=== PATIENT | female | born 1950 | race Caucasian/White ===

== ENCOUNTER 2018-04-30 14:00 | Outpatient (RCR) ==
[2015-09-04 13:14] VITALS: BMI 29.5
--- NOTE | 2018-04-09 10:46 | RS.OPPTEV2 ---
Date of Note: 04/08/18 Visit #: 1 Number of visits approved by Insurance: n/a Date of Evaluation: 04/08/18 Payer Source: MEDICARE Date of Onset/Injury/Change in Status: 04/02/18 Surgery Performed?: No Treatment Diagnosis: Back pain, Lumbar disc degeneration History of Condition/Mechanism of Injury:: pt reports acute onset of low back pain radiating into LLE beginning on 04/02/18. States when she stood up from bed had an acute onset of pain with sharp pain radiating into LLE. Prior Level of Function.....Patient was independent with: ADL's, Self Care, Caregiving, Ambulation/Mobility, Community Integration/Access Functional Limitations: Sleep, Self Care, ADL's, Pushing, Pulling, Lifting, Sitting, Standing, Ambulation, Community Access/Integration Current Subjective/complaints:: pt reports pain is excrutiating and she has been unable to perform any of her normal daily activities since onset. Treatment Side (optional): Left *Precautions: advised pt to limit bending, lifting or twisting Medical History Medical History: Arthritis Medical History Comments:: complex regional pain syndrome( RSD) in right hand and L foot, Fibromyalgia Smoking Status: Former smoker Hx Home Medications: percocet, zanaflex (takes for the RSD) Patient's Goals: decrease pain Pain Assessment - Pain Description Pain Location: L lumbar area radiating into LLE Current Pain Intensity: 10 Worst Pain Intensity: 10 Other Comments regarding Pain:: pt increases with any movement Functional Outcome Measure Oswestry LBP: 38 - G Codes & Severity Modifier G Codes & Modifier: n/a Source of G Code score: n/a Observation - Observation Posture: Forward Head, Rounded Shoulders, Increased Thoracic Kyphosis Handedness: Right Gait - Gait Pattern Gait Comments: pt amb with significantly flexed posture, decreased step length and guarded posture due to pain. General Range of Motion: BUE WFL's. BLE WFL's. (difficulty to fully test due to pt pain level) Muscle Strength: BUE grossly 4/5. BLE grossly 4/5. (difficult to fully assess due to pain level) - ROM Lumbar Spine ROM Limitations: Soft Tissue Tightness, Muscle Weakness, Muscle Tone, Pain Comments: pt unable to reach with flex to mid thigh or lat bending. pt significantly limited due to pain. Lumbar ext decreases pain - Strength Trunk Extension: 4- Good- Trunk Flexion: 3- Fair- Trunk Lateral Flexion: 3- Fair- - Special Tests Seated Dural Stretch Test: Positive Left, Positive Right SI Joint Compression: Positive Comments: unable to fully test due to pt pain level. Palpation Palpation Findings: Tenderness, Trigger Point, Muscle Guarding Comments:: pt with withdraws to even light palpation of lumbar area with trigger points and muscle guarding especially over L SI joint Sensation - Sensation Right Upper Extremity: Intact/Normal Left Upper Extremity: Intact/Normal Right Lower Extremity: Intact/Normal Left Lower Extremity: Intact/Normal Balance - Sitting Balance Static Sitting Balance: Good Dynamic Sitting Balance: Good - Standing Balance Static Standing Balance: Fair Dynamic Standing Balance: Fair - Comments Balance Assessment Comments: pt balance limited due to pain causing pt posture to be shifted to R - Treatment Modality: Electrical Stim Attended Parameters/Method Applied: IFC x 20mins Treatment Area: to lumbar area Patient Position: Left Sidelying - Heat/Cryotherapy Treatment: Cryotherapy Comments:: lumbar spine Interventions - Exercise/Activities/Manual Therapy Exercises/Activities: pt unable to tolerate exercise except for prone lying x 1 to 1 1/2 mins. While prone lying pt had decreased radicular symptoms on LLE. Manual Therapy: n/a HOME EXERCISE PROGRAM: pt given HEP including lying prone, using ice packs as well as standing lumbar extenson. - Charges Timed Code Treatment Minutes: 49 Total Treatment Time: 65 Procedures billed for this date of service:: eval low, estim, cold pack EVALUATION COMPLEXITY LEVEL EVALUATION COMPLEXITY LEVEL: HISTORY: Low (fibromyalgia, OA), EXAM OF BODY SYSTEMS: Medium (pain, ROM, strength radicular symptoms), CLINICAL PRESENTATION : Low, CLINICAL DECISION MAKING: Low Assessment Assessment: pt presents with significant pain in lumar area worse on L and in area of L SI joint. pt with limited Lumbar ROM as well as radicular pain into LLE. Feel pt would benefit from skilled PT for therex for stretching, strengthening, and balance actvites Patient Education: Home Exercise Program, Education of Plan of Care Rehab Potential: Good Short Term Goals Goal #1: pt independent with initial HEP Goal to be met by: 04/29/18 Goal #2: Tenderness to palpation on L SI joint Goal to be met by: 04/29/18 Goal #3: pt report radicular pain no longer constant Goal to be met by: 04/29/18 Goal #4: pt rate pain < 8/10 Goal to be met by: 04/29/18 Wildlife Photographer Goals Goal #1: Oswestry LBP score <30 Goal to be met by: 05/20/18 Goal #2: pt able to return to normal daily activities with less pain Goal to be met by: 05/20/18 Goal #3: BLE flexibility WFL's Goal to be met by: 05/20/18 Plan - Treatment to be Provided Procedures: Therapeutic Exercises, Manual Therapy, Massage, Patient Education Modalities: Electrical Stimulation, Ultrasound/Phonophoresis, Cryotherapy, Hot Packs, Mechanical Traction - Treatment Plan Frequency: 2-3x a week Duration: 6 weeks Dates of Wildlife Photographer Goals: 05/20/18 Expiration date of current Insurance Approval:: 05/20/18 - Treatment Code (1) Low back pain with sciatica Code(s): M54.40 - LUMBAGO WITH SCIATICA, UNSPECIFIED SIDE Qualifiers: Chronicity: acute Back pain laterality: bilateral Sciatica laterality: sciatica of left side Qualified Code(s): M54.42 - Lumbago with sciatica, left side (2) Muscle tightness Code(s): M62.89 - OTHER SPECIFIED DISORDERS OF MUSCLE (3) Muscle weakness Code(s): M62.81 - MUSCLE WEAKNESS (GENERALIZED)
--- NOTE | 2018-04-10 15:24 | RS.OPPTDN ---
Subjective Date of Note: 04/10/18 Visit #: 2 Number of visits approved by Insurance: n/a Date of Evaluation: 04/08/18 Payer Source: MEDICARE Treatment Diagnosis: Back pain, Lumbar disc degeneration Current Subjective/complaints:: pt states she has been using heat and ice at home and tried lying in the prone position to decrease pain. *Precautions: advised pt to limit bending, lifting or twisting Pain Assessment - Pain Description Pain Location: lumbosacral area worse on the L in area of the SI Pain Description: Sharp, Aching Current Pain Intensity: 3-4 Worst Pain Intensity: 6 - Treatment Modality: Ultrasound Parameters/Method Applied: 1.5w/cm2 x 7 mins Treatment Area: L SI area Patient Position: Right Sidelying - Heat/Cryotherapy Treatment: Hot Pack Comments:: prior to treatment Interventions - Exercise/Activities/Manual Therapy Exercises/Activities: pt received gentle hamstring stretching, piriformis stretching, knee to chest, as well as isometric hip add x 5, resisted hip flex x 5. prone lying with no reports of radicular pain. pt also received massage to L lumbosacral area and trigger point release in area of L SI. Total minutes of Exercise: 28 Manual Therapy: n/a HOME EXERCISE PROGRAM: pt given HEP including lying prone, standing lumbar ext, piriformis stretch, isometric hip add, resisted hip flex. - Charges Timed Code Treatment Minutes: 49 Total Treatment Time: 57 Procedures billed for this date of service:: ex 2, ultrasound, HP Assessment: pt pain significantly decreased. pt amb with improved posture after treatment with less of a shift to R. Patient Education: Home Exercise Program, Education of Plan of Care Patient demonstrates compliance with HEP?: Yes Short Term Goals Goal #1: pt independent with initial HEP Goal to be met by: 04/29/18 Progress towards Goal:: Progressing Goal #2: Tenderness to palpation on L SI joint Goal to be met by: 04/29/18 Progress towards Goal:: Progressing Goal #3: pt report radicular pain no longer constant Goal to be met by: 04/29/18 Progress towards Goal:: Progressing Goal #4: pt rate pain < 8/10 Goal to be met by: 04/29/18 Progress towards Goal:: Progressing Electrical Equipment Assembler Goals Goal #1: Oswestry LBP score <30 Goal to be met by: 05/20/18 Goal #2: pt able to return to normal daily activities with less pain Goal to be met by: 05/20/18 Goal #3: BLE flexibility WFL's Goal to be met by: 05/20/18 Plan Dates of Alf Goals: 05/20/18 Expiration date of current Insurance Approval:: n/a PLAN: plan to continue with strengthening, stretching, as well as modalities to decrease pain.
--- NOTE | 2018-04-14 15:26 | RS.OPPTDN ---
Subjective Date of Note: 04/14/18 Visit #: 3 Number of visits approved by Insurance: [id number] Date of Evaluation: 04/08/18 Payer Source: MEDICARE Treatment Diagnosis: Back pain, Lumbar disc degeneration Current Subjective/complaints:: Patient says her last treatment seemed to help her pain, but she is having more today. She says she is not sure if it is weather related. She says she has been trying to do her stretches at home, but not able to push as hard as we can and does not feel she is benefiting like she is when we stretch her. She states standing up and beginning to walk is the hardest for her right now. *Precautions: advised pt to limit bending, lifting or twisting - Treatment Modality: Ultrasound Parameters/Method Applied: continuous @ 1.5 w/cm2 x 12 mins to the L superior gluteal region and SI joint Patient Position: Right Sidelying - Heat/Cryotherapy Treatment: Hot Pack (over the low back and L SI joint in R sidelying x 20 mins) Interventions - Exercise/Activities/Manual Therapy Exercises/Activities: pt received gentle hamstring stretching, piriformis stretching, knee to chest, figure 4, as well as isometric hip add x 10, resisted hip flex x 5, isometric hip abd in hooklying x 10. Patient received education on diagnosis, anatomy, and HEP re-education. Total minutes of Exercise: 17 Manual Therapy: n/a HOME EXERCISE PROGRAM: pt given HEP including lying prone, standing lumbar ext, piriformis stretch, isometric hip add, resisted hip flex. - Charges Timed Code Treatment Minutes: 29 Total Treatment Time: 49 Procedures billed for this date of service:: hp, u/s, ex Assessment: Patient responding to treatment as she is having less pain for ~1 day. She maintains mild tenderness to moderate palpation to the L SI joint region. She sadie stretches well with admitting relief through passive stretch and no difficulty with isometrics. Re-instructed on HEP and ways to stretch the hamstrings more comfortably. Patient Education: Education of diagnosis, Body/Joint mechanics, Home Exercise Program, Education of Plan of Care Patient demonstrates compliance with HEP?: Yes Short Term Goals Goal #1: pt independent with initial HEP Goal to be met by: 04/29/18 Progress towards Goal:: Progressing Goal #2: Tenderness to palpation on L SI joint Goal to be met by: 04/29/18 Progress towards Goal:: Progressing Goal #3: pt report radicular pain no longer constant Goal to be met by: 04/29/18 Progress towards Goal:: Progressing Goal #4: pt rate pain < 8/10 Goal to be met by: 04/29/18 Progress towards Goal:: Progressing Manager Programming Goals Goal #1: Oswestry LBP score <30 Goal to be met by: 05/20/18 Goal #2: pt able to return to normal daily activities with less pain Goal to be met by: 05/20/18 Goal #3: BLE flexibility WFL's Goal to be met by: 05/20/18 Plan Dates of Longterm Goals: 05/20/18 Expiration date of current Insurance Approval:: 05/20/18 PLAN: Patient to continue with modalities and therex to the L LB and SI
--- NOTE | 2018-04-16 15:42 | RS.OPPTDN ---
Subjective Date of Note: 04/16/18 Visit #: 4 Number of visits approved by Insurance: Reassess at 10th Date of Evaluation: 04/08/18 Payer Source: MEDICARE Treatment Diagnosis: Back pain, Lumbar disc degeneration Current Subjective/complaints:: Patient says treatment is helping. She says she had her help her with some of the stretches last night to gain more relief. She c/o pain with ambulation today and trying to take smaller steps to avoid pain increase. *Precautions: advised pt to limit bending, lifting or twisting Pain Assessment - Pain Description Pain Location: Does not rate. L SI joint and increases with ambulation. Pain Description: Radiating, Sharp - Treatment Modality: Ultrasound Parameters/Method Applied: continuous @ 1.5 w/cm2 x 12 mins to the L superior glut and SI joint Patient Position: Right Sidelying - Heat/Cryotherapy Treatment: Hot Pack (over the low back and L SI in sidelying x 15 mins) Interventions - Exercise/Activities/Manual Therapy Exercises/Activities: pt received gentle hamstring stretching, piriformis stretching, knee to chest, figure 4, as well as isometric hip add x 10, resisted hip flex x 10, isometric hip abd in hooklying x 10. Patient reviewed HEP. Total minutes of Exercise: 16 Manual Therapy: n/a HOME EXERCISE PROGRAM: pt given HEP including lying prone, standing lumbar ext, piriformis stretch, isometric hip add, resisted hip flex. - Charges Timed Code Treatment Minutes: 28 Total Treatment Time: 43 Procedures billed for this date of service:: hp u/s, ex Assessment: Patient appears to be responding to treatment as she admits decreased pain after a few mins into u/s and thereafter. She does have tender areas within the L glut during u/s, but decreased within a few mins. She sadie trunk stability well and provides good resistance. Patient Education: Body/Joint mechanics, Home Exercise Program, Education of Plan of Care Patient demonstrates compliance with HEP?: Yes Short Term Goals Goal #1: pt independent with initial HEP Goal to be met by: 04/29/18 Progress towards Goal:: Progressing Goal #2: Tenderness to palpation on L SI joint Goal to be met by: 04/29/18 Progress towards Goal:: Progressing Goal #3: pt report radicular pain no longer constant Goal to be met by: 04/29/18 Progress towards Goal:: Progressing Goal #4: pt rate pain < 8/10 Goal to be met by: 04/29/18 Progress towards Goal:: Progressing Alf Goals Goal #1: Oswestry LBP score <30 Goal to be met by: 05/20/18 Goal #2: pt able to return to normal daily activities with less pain Goal to be met by: 05/20/18 Goal #3: BLE flexibility WFL's Goal to be met by: 05/20/18 Plan Dates of Alf Goals: 05/20/18 Expiration date of current Insurance Approval:: 05/20/18 PLAN: Continue progressing pelvic stability and modalities to ease L SI and muscle guarding.
--- NOTE | 2018-04-18 15:09 | RS.OPPTDN ---
Subjective Date of Note: 04/18/18 Visit #: 5 Number of visits approved by Insurance: NA Date of Evaluation: 04/08/18 Payer Source: MEDICARE Treatment Diagnosis: Back pain, Lumbar disc degeneration Current Subjective/complaints:: Patient the sciatic pain is down the entire L leg currently. *Precautions: advised pt to limit bending, lifting or twisting Pain Assessment - Pain Description Pain Location: lumbar/L leg Pain Description: Radiating, Dull, Aching Current Pain Intensity: 3-4/10 - Treatment Modality: Ultrasound Parameters/Method Applied: 10 mins. @ 1.5 w/cm2 to lumbar /SI area. Patient Position: Right Sidelying (20) - Heat/Cryotherapy Treatment: Hot Pack (20 mins. prior to US and ex.) Interventions - Exercise/Activities/Manual Therapy Exercises/Activities: 20 mins. gentle pelvic tilts,hamstring stretching, piriformis stretching, SKTC,DKTC.Instructed in R sidelying gravity - assisted stretch for L piriformis.SI muscle energy education only today ,but no leg length difference currently. Total minutes of Exercise: 20 Manual Therapy: n/a Total minutes of Manual Therapy: 0 HOME EXERCISE PROGRAM: pt given HEP including lying prone, standing lumbar ext, piriformis stretch, isometric hip add, resisted hip flex. - Charges Timed Code Treatment Minutes: 30 Total Treatment Time: 50 Procedures billed for this date of service:: hp,US,ex 1 Assessment: Patient reports the sciatica lessens significantly when at rest , but gradually returns the longer she is on her feet.She is doing the HEP with assist from spouse ,has improved hamstring extensibility. Patient Education: Body/Joint mechanics, Home Exercise Program, Home Safety Patient demonstrates compliance with HEP?: Yes Short Term Goals Goal #1: pt independent with initial HEP Goal to be met by: 04/29/18 Progress towards Goal:: Progressing Goal #2: Tenderness to palpation on L SI joint Goal to be met by: 04/29/18 Progress towards Goal:: Progressing Goal #3: pt report radicular pain no longer constant Goal to be met by: 04/29/18 Progress towards Goal:: Progressing Goal #4: pt rate pain < 8/10 Goal to be met by: 04/29/18 Progress towards Goal:: Progressing Sales Associate Goals Goal #1: Oswestry LBP score <30 Goal to be met by: 05/20/18 Goal #2: pt able to return to normal daily activities with less pain Goal to be met by: 05/20/18 Goal #3: BLE flexibility WFL's Goal to be met by: 05/20/18 Plan Dates of Residential Goals: 05/20/18 Expiration date of current Insurance Approval:: NA PLAN: Cont. skilled PT to reduce / eliminate LBP and sciatica.
--- NOTE | 2018-04-21 16:28 | RS.OPPTDN ---
Subjective Date of Note: 04/21/18 Visit #: 6 Number of visits approved by Insurance: REassess at 10th Date of Evaluation: 04/08/18 Payer Source: MEDICARE Treatment Diagnosis: Back pain, Lumbar disc degeneration Current Subjective/complaints:: Patient reports her pain was "all down my L leg to my foot" last week and today is only at the L SI joint and midway down thigh laterally. She says treatment is helping her, but will be glad for warmer weather because the cold also affects her pain. She says the stretches give her great relief. *Precautions: advised pt to limit bending, lifting or twisting - Treatment Modality: Ultrasound Parameters/Method Applied: Continuous @ 1.5 w/cm2 x 12 mins to the L SI joint and superior glut Patient Position: Right Sidelying - Heat/Cryotherapy Treatment: Hot Pack (across the low back over the L SI/glut x 20 mins sidelying) Interventions - Exercise/Activities/Manual Therapy Exercises/Activities: Patient receives passive stretching of: SKTC, HS, Piriformis, Fig 4, and lower trunk rotation x 4 for the L. Patient performs: isometric hip flex/abd/add x 10, bridging x 5. Provided red tband for hooklying hip abd for home and instructed in use. Total minutes of Exercise: 18 Manual Therapy: n/a HOME EXERCISE PROGRAM: pt given HEP including lying prone, standing lumbar ext, piriformis stretch, isometric hip add, resisted hip flex. - Charges Timed Code Treatment Minutes: 30 Total Treatment Time: 50 Procedures billed for this date of service:: hp, u/s, ex Assessment: Patient experiencing less intense pain to the L SI joint with decreased radiating pain to the L LE stopping now mid thigh laterally. She sadie all pelvic stability well and demo relief with stretching today. Patient Education: Education of diagnosis, Home Exercise Program Patient demonstrates compliance with HEP?: Yes Short Term Goals Goal #1: pt independent with initial HEP Goal to be met by: 04/29/18 Progress towards Goal:: Progressing Goal #2: Tenderness to palpation on L SI joint Goal to be met by: 04/29/18 Progress towards Goal:: Progressing Goal #3: pt report radicular pain no longer constant Goal to be met by: 04/29/18 Progress towards Goal:: Progressing Goal #4: pt rate pain < 8/10 Goal to be met by: 04/29/18 Progress towards Goal:: Progressing Emergency Veterinary Assistant Goals Goal #1: Oswestry LBP score <30 Goal to be met by: 05/20/18 Goal #2: pt able to return to normal daily activities with less pain Goal to be met by: 05/20/18 Goal #3: BLE flexibility WFL's Goal to be met by: 05/20/18 Plan Dates of Emergency Veterinary Assistant Goals: 05/20/18 Expiration date of current Insurance Approval:: 05/20/18 PLAN: Patient to continue with modalities and therex for the L LE/pelvis.
--- NOTE | 2018-04-23 14:51 | RS.OPPTDN ---
Subjective Date of Note: 04/23/18 Visit #: 6 Number of visits approved by Insurance: Reassess at 10th Date of Evaluation: 04/08/18 Payer Source: MEDICARE Treatment Diagnosis: Back pain, Lumbar disc degeneration Current Subjective/complaints:: Patient says she is feeling better than last session. States today has been the first day she could walk without having the pain she has had. Reports she has been able to sleep better last night as well. *Precautions: advised pt to limit bending, lifting or twisting - Treatment Modality: Ultrasound Parameters/Method Applied: continuous @ 1.5 w/cm2 x 12 mins to the L SI joint and superior glut Patient Position: Right Sidelying - Heat/Cryotherapy Treatment: Hot Pack Interventions - Exercise/Activities/Manual Therapy Exercises/Activities: Patient receives passive stretching of: SKTC, HS, Piriformis, Fig 4, and lower trunk rotation x 4 for the L. Patient performs: isometric hip flex/abd/add x 10, bridging 2 x 5. QS for the L. Patient did have mm cramp to the L hip during HS stretch, but stopped after rest. Total minutes of Exercise: 18 Manual Therapy: n/a HOME EXERCISE PROGRAM: pt given HEP including lying prone, standing lumbar ext, piriformis stretch, isometric hip add, resisted hip flex. - Charges Timed Code Treatment Minutes: 30 Total Treatment Time: 50 Procedures billed for this date of service:: hp, u/s, ex Assessment: Patient presents with less antalgic gait today admitting improved pain level and increased flexibility with piriformis and HS stretching compared to recent visits. Decrease tenderness during u/s noted as well. Patient Education: Home Exercise Program Patient demonstrates compliance with HEP?: Yes Short Term Goals Goal #1: pt independent with initial HEP Goal to be met by: 04/29/18 Progress towards Goal:: Progressing Goal #2: Tenderness to palpation on L SI joint Goal to be met by: 04/29/18 Progress towards Goal:: Progressing Goal #3: pt report radicular pain no longer constant Goal to be met by: 04/29/18 Progress towards Goal:: Progressing Goal #4: pt rate pain < 8/10 Goal to be met by: 04/29/18 Progress towards Goal:: Progressing Skilled Nursing Goals Goal #1: Oswestry LBP score <30 Goal to be met by: 05/20/18 Goal #2: pt able to return to normal daily activities with less pain Goal to be met by: 05/20/18 Goal #3: BLE flexibility WFL's Goal to be met by: 05/20/18 Plan Dates of Beveling And Edging Machine Operator Goals: 05/20/18 Expiration date of current Insurance Approval:: 05/20/18 PLAN: Patient to continue with modalities and therex providing hip strengthening and trunk stability.
--- NOTE | 2018-04-25 15:04 | RS.OPPTDN ---
Subjective Date of Note: 04/25/18 Visit #: 7 Number of visits approved by Insurance: Reassess at 10 Date of Evaluation: 04/08/18 Payer Source: MEDICARE Treatment Diagnosis: Back pain, Lumbar disc degeneration Current Subjective/complaints:: Patient says she is pleased with being able to walk better now. She says this has been 2-3 days in a row that she has awakened and able to not have the pain once getting out of bed. She says her back/SI is less tender also. *Precautions: advised pt to limit bending, lifting or twisting - Treatment Modality: Ultrasound Parameters/Method Applied: continuous @ 1.5 w/cm2 x 12 mins to the L lumbar paraspinals, superior glut, and SI joint Patient Position: Right Sidelying - Heat/Cryotherapy Treatment: Hot Pack (15 mins over the L glut/low back and SI joint in sidelying) Interventions - Exercise/Activities/Manual Therapy Exercises/Activities: Patient receives passive stretching of: SKTC, HS, Piriformis, Fig 4, and lower trunk rotation x 4 for the L. Patient performs: isometric hip flex/abd/add x 10, bridging 2 x 5. QS for the L. Patient did have mm cramp to the L hip during last rep of bridging, but stopped immediately with rest. Total minutes of Exercise: 16 Manual Therapy: n/a HOME EXERCISE PROGRAM: pt given HEP including lying prone, standing lumbar ext, piriformis stretch, isometric hip add, resisted hip flex. - Charges Timed Code Treatment Minutes: 28 Total Treatment Time: 43 Procedures billed for this date of service:: hp, u/s,ex Assessment: Patient experiencing improvement with ability to ambulate with less pain and more equal WBing on the L LE now. Generally, pt is feeling better and able to perform therex easier. Patient demonstrates compliance with HEP?: Yes Short Term Goals Goal #1: pt independent with initial HEP Goal to be met by: 04/29/18 Progress towards Goal:: Progressing Goal #2: Tenderness to palpation on L SI joint Goal to be met by: 04/29/18 Progress towards Goal:: Progressing Goal #3: pt report radicular pain no longer constant Goal to be met by: 04/29/18 Progress towards Goal:: Progressing Goal #4: pt rate pain < 8/10 Goal to be met by: 04/29/18 Progress towards Goal:: Progressing [facility] Goals Goal #1: Oswestry LBP score <30 Goal to be met by: 05/20/18 Goal #2: pt able to return to normal daily activities with less pain Goal to be met by: 05/20/18 Goal #3: BLE flexibility WFL's Goal to be met by: 05/20/18 Plan Dates of Senior Living Goals: 05/20/18 Expiration date of current Insurance Approval:: 05/20/18 PLAN: Patient to continue with modalities and progress trunk/hip strengthening.
--- NOTE | 2018-04-29 14:50 | RS.OPPTDN ---
Subjective Date of Note: 04/28/18 Visit #: 7 Number of visits approved by Insurance: Reassess at 10th Date of Evaluation: 04/08/18 Payer Source: MEDICARE Treatment Diagnosis: Back pain, Lumbar disc degeneration Current Subjective/complaints:: Patient says she had elevated pain yesterday and had trouble positioning, but much better today. She says overall, she is sleeping better and also walking easier. *Precautions: advised pt to limit bending, lifting or twisting - Treatment Modality: Ultrasound Parameters/Method Applied: continuous @ 1.5 w/cm2 x 10 mins to the L SI joint and superior glut. Also, 4 mins to the L lumbar paraspinals Patient Position: Right Sidelying - Heat/Cryotherapy Treatment: Hot Pack (over the low back and L SI/buttock x 20 mins in sidelying ) Interventions - Exercise/Activities/Manual Therapy Exercises/Activities: Patient receives passive stretching of: SKTC, HS, Piriformis, Fig 4, and lower trunk rotation x 4 for the L. Patient performs: isometric hip flex/abd/add x 10, bridging 2 x 5. QS for the L. L SLR x 8. Total minutes of Exercise: 18 Manual Therapy: n/a HOME EXERCISE PROGRAM: pt given HEP including lying prone, standing lumbar ext, piriformis stretch, isometric hip add, resisted hip flex. - Charges Timed Code Treatment Minutes: 32 Total Treatment Time: 52 Procedures billed for this date of service:: hp, u/s, ex Assessment: Patient experiencing less pain in general, improved sleep, and ambulation as well. She demo less tenderness to the L SI joint presently. Patient Education: Education of diagnosis, Home Exercise Program Patient demonstrates compliance with HEP?: Yes Short Term Goals Goal #1: pt independent with initial HEP Goal to be met by: 04/29/18 Progress towards Goal:: Progressing Goal #2: Tenderness to palpation on L SI joint Goal to be met by: 04/29/18 Progress towards Goal:: Progressing Goal #3: pt report radicular pain no longer constant Goal to be met by: 04/29/18 Progress towards Goal:: Progressing Goal #4: pt rate pain < 8/10 Goal to be met by: 04/29/18 Progress towards Goal:: Progressing [facility] New Graduate Goals Goal #1: Oswestry LBP score <30 Goal to be met by: 05/20/18 Goal #2: pt able to return to normal daily activities with less pain Goal to be met by: 05/20/18 Goal #3: BLE flexibility WFL's Goal to be met by: 05/20/18 Plan Dates of Rn New Graduate Goals: 05/20/18 Expiration date of current Insurance Approval:: 05/20/18 PLAN: Patient to continue with modalities and therex
== END 2018-05-01 23:59 ==
PROVIDERS: ATTEND Internal Medicine
DX: M54.5 Low back pain (principal); M54.31 Sciatica, right side; M54.32 Sciatica, left side; R42 Dizziness and giddiness

== ENCOUNTER 2018-05-08 14:00 | Outpatient (RCR) ==
[2015-09-04 13:14] VITALS: BMI 29.5
--- NOTE | 2018-05-02 15:31 | RS.OPPTDN ---
Subjective Date of Note: 05/02/18 Visit #: 10 Number of visits approved by Insurance: 12, Reassess today Date of Evaluation: 04/08/18 Payer Source: MEDICARE Treatment Diagnosis: Back pain, Lumbar disc degeneration Current Subjective/complaints:: Patient continues to say she is so much better. Reports she had a follow up with her MD yesterday and he seemed pleased that she has improved with therapy. She reports walking is getting easier and tenderness is much less at the L SI. *Precautions: advised pt to limit bending, lifting or twisting - Treatment Modality: Ultrasound Parameters/Method Applied: continuous @ 1.5 w/cm2 x 12 mins to the L lumbar paraspinals SI/superior glut Patient Position: Right Sidelying - Heat/Cryotherapy Treatment: Hot Pack (over the L LB, hip, and SI region x 20 mins in sidelying) Interventions - Exercise/Activities/Manual Therapy Exercises/Activities: Patient performs: Ball squeezes for hip add isometrics, bridges, SLR, QS, green tband hooklying hip abd to instruct for HEP, isometric hip flexion all 2x10 reps. Patient completed Oswestry LBP scale. Total minutes of Exercise: 17 Manual Therapy: n/a HOME EXERCISE PROGRAM: pt given HEP including lying prone, standing lumbar ext, piriformis stretch, isometric hip add, resisted hip flex. - Objective Findings Observations,measurements,etc.: Oswestry: scored 11 or 22% impairment. Eval: revealed 38 or 76% impairment - Charges Timed Code Treatment Minutes: 29 Total Treatment Time: 49 Procedures billed for this date of service:: hp, u/s, ex Assessment: Patient advancing with HEP well, reduced pain level to the L LB and L SI joint, decreased tenderness now to deep palpation. She is able to perform all therex with improved control, no muscle cramps, and improved Oswestry score. Patient Education: Education of diagnosis, Home Exercise Program, Education of Plan of Care Patient demonstrates compliance with HEP?: Yes Short Term Goals Goal #1: pt independent with initial HEP Goal to be met by: 04/29/18 Progress towards Goal:: Met Goal #2: Tenderness to palpation on L SI joint Goal to be met by: 04/29/18 Progress towards Goal:: Met Goal #3: pt report radicular pain no longer constant Goal to be met by: 04/29/18 Progress towards Goal:: Met Goal #4: pt rate pain < 8/10 Goal to be met by: 04/29/18 Progress towards Goal:: Met (03/13 avg) [employer] Goals Goal #1: Oswestry LBP score <30 Goal to be met by: 05/20/18 Progress towards goal: Met Comments: 22% or score of 11 Goal #2: pt able to return to normal daily activities with less pain Goal to be met by: 05/20/18 Progress towards goal: Progressing Goal #3: BLE flexibility WFL's Goal to be met by: 05/20/18 Progress towards goal: Progressing Plan Dates of [facility] Goals: 05/20/18 Expiration date of current Insurance Approval:: 05/20/18 PLAN: Patient to continue x 2 visits to complete POC and increase/progress trunk strengthening
--- NOTE | 2018-05-05 11:22 | RS.PTSUM ---
Progress Note/Summary Date of Note: 05/02/18 Date of Evaluation: 04/08/18 Number of Visits: 10 Number of visits approved by Insurance: n/a Reporting Period for this Progress Note: 04/08/18-05/02/18 Current Complaints/Gains: pt reports decreased tenderness and improved ability to amb longer distances. Rates pain 1/10 in L SI Objective Measurements/Presentation: pt with improved hamstring and piriformis flexibility to nearly equal to RLE. Improved tolerance to progressive hip/core strengthening. G Codes: n/a Source of G Code Score: n/a - Short Term Goals Goal #1: pt independent with initial HEP Goal to be met by: 04/29/18 Progress towards Goal:: Met Goal #2: Tenderness to palpation on L SI joint Goal to be met by: 04/29/18 Progress towards Goal:: Met Goal #3: pt report radicular pain no longer constant Goal to be met by: 04/29/18 Progress towards Goal:: Met Goal #4: pt rate pain < 8/10 Goal to be met by: 04/29/18 Progress towards Goal:: Met (1/10 avg) - [facility] Goals Goal #1: Oswestry LBP score <30 Goal to be met by: 05/20/18 Progress towards goal: Met Goal #2: pt able to return to normal daily activities with less pain Goal to be met by: 05/20/18 Progress towards goal: Progressing Goal #3: BLE flexibility WFL's Goal to be met by: 05/20/18 Progress towards goal: Progressing - Assessment Assessment of Improvement/Progress: pt has met STG's and LTG 1. pt progressing with decreased pain as well as improved strength. pt pain has decreased from 10/ 10 to 1/10. pt with improved gait ability. Feel pt would benefit from skilled PT to continue to improve core strengthening, balance. Summary: Patient has made progress towards goals., Patient demonstrates potential to gain increased function with therapy - Plan Plan: Complete remaining visits on current order. Frequency: 2 X week Duration: 2 weeks Dates of [facility] Goals: 05/20/18 Expiration date of current Insurance Approval:: n/a
--- NOTE | 2018-05-06 15:54 | RS.OPPTDN ---
Subjective Date of Note: 05/06/18 Visit #: 11 Number of visits approved by Insurance: 12 Date of Evaluation: 04/08/18 Payer Source: MEDICARE Treatment Diagnosis: Back pain, Lumbar disc degeneration Current Subjective/complaints:: Patient says she was more sore into her L LB last night and this morning. She says it is hurting more than her L SI or hip presently. She is unsure if she slept in a bad position or not because she has no other reasoning. *Precautions: advised pt to limit bending, lifting or twisting - Treatment Modality: Ultrasound Parameters/Method Applied: continuous @ 1.5 w/cm2 x 12 mins to mostly the L lumbar paraspinals and then to L SI joint/superior glut. Patient Position: Right Sidelying - Heat/Cryotherapy Treatment: Hot Pack (over the low back and L SI in sidelying x 20 mins) Interventions - Exercise/Activities/Manual Therapy Exercises/Activities: Gayle receives passive stretching for L LE including: SKTC, HS, Piriformis, Figure 4, lower trunk rotation x 3. Patient performs: Ball squeezes for hip add isometrics, bridges, SLR x 5, QS, green tband hooklying hip abd to instruct for HEP, isometric hip flexion all 2x10 reps. Total minutes of Exercise: 19 Manual Therapy: n/a HOME EXERCISE PROGRAM: pt given HEP including lying prone, standing lumbar ext, piriformis stretch, isometric hip add, resisted hip flex. - Charges Timed Code Treatment Minutes: 31 Total Treatment Time: 51 Procedures billed for this date of service:: hp, ex, u/s Assessment: Patient experiencing elevated L LBP rather than L SI today. She has been compliant with progressing HEP. She admits improved pain with treatment today which u/s focused on the L Lumbar region. SLR difficult for her to perform today demo shakiness as well as with isometric hip add. She is able to amb however without antalgic gait today and overall has been able to sadie amb longer distances and multiple sit to stands at [facility] Saturday. Patient Education: Home Exercise Program, Education of Plan of Care Patient demonstrates compliance with HEP?: Yes Short Term Goals Goal #1: pt independent with initial HEP Goal to be met by: 04/29/18 Progress towards Goal:: Met Goal #2: Tenderness to palpation on L SI joint Goal to be met by: 04/29/18 Progress towards Goal:: Met Goal #3: pt report radicular pain no longer constant Goal to be met by: 04/29/18 Progress towards Goal:: Met Goal #4: pt rate pain < 8/10 Goal to be met by: 04/29/18 Progress towards Goal:: Met (1/10 avg) [facility] Goals Goal #1: Oswestry LBP score <30 Goal to be met by: 05/20/18 Progress towards goal: Met Goal #2: pt able to return to normal daily activities with less pain Goal to be met by: 05/20/18 Progress towards goal: Progressing Goal #3: BLE flexibility WFL's Goal to be met by: 05/20/18 Progress towards goal: Progressing Plan Dates of Home Care Assistant Goals: 05/20/18 Expiration date of current Insurance Approval:: 05/20/18 PLAN: Patient to complete final visit per POC revision at 10th visit.
--- NOTE | 2018-05-08 16:13 | RS.OPPTDN ---
Subjective Date of Note: 05/08/18 Visit #: 12 Number of visits approved by Insurance: 12 Date of Evaluation: 04/08/18 Payer Source: MEDICARE Treatment Diagnosis: Back pain, Lumbar disc degeneration Current Subjective/complaints:: Patient c/o increased back pain today that is near waistline and symmetrical. She says when she got out of bed this morning, pain was not there, but as she got up and walked around her home, it was present. She says she immediately started to perform HEP and stretches which relieved it substantially. *Precautions: advised pt to limit bending, lifting or twisting - Treatment Modality: Ultrasound Parameters/Method Applied: continuous @ 1.5 w/cm2 x 14 mins to bilateral lumbar paraspinals x 9 mins then to the L SI joint. Patient Position: Right Sidelying - Heat/Cryotherapy Treatment: Hot Pack (over the low back in R sidelying x 20 mins) Interventions - Exercise/Activities/Manual Therapy Exercises/Activities: Gayle receives passive stretching for bilateral LE including: SKTC, HS, Piriformis, Figure 4, lower trunk rotation x 4. Patient performs: Pillow squeezes for hip add isometrics, QS, SLR x 5, Isometric hip abd in hooklying x 10. Total minutes of Exercise: 17 Manual Therapy: n/a HOME EXERCISE PROGRAM: pt given HEP including lying prone, standing lumbar ext, piriformis stretch, isometric hip add, resisted hip flex. - Charges Timed Code Treatment Minutes: 31 Total Treatment Time: 51 Procedures billed for this date of service:: hp, u/s, ex Assessment: Patient presented with increased LBP that was fairly symmetrical as well as L SI joint pain that was actually slightly less than that of the LB. She was grimacing and ambulated with antalgic gait upon arrival, but did amb out of dept with faster pace and smiling admitting much improvement. She was able to sadie stretching to bilateral LEs and isometrics without voiced difficulty. She was encouraged to continue her HEP and use thermal treatment to ease back pain should it increase over the next few days. Patient Education: Body/Joint mechanics, Home Exercise Program Patient demonstrates compliance with HEP?: Yes Short Term Goals Goal #1: pt independent with initial HEP Goal to be met by: 04/29/18 Progress towards Goal:: Met Goal #2: Tenderness to palpation on L SI joint Goal to be met by: 04/29/18 Progress towards Goal:: Met Goal #3: pt report radicular pain no longer constant Goal to be met by: 04/29/18 Progress towards Goal:: Met Goal #4: pt rate pain < 8/10 Goal to be met by: 04/29/18 Progress towards Goal:: Met (1/ avg) [facility] Goals Goal #1: Oswestry LBP score <30 Goal to be met by: 05/20/18 Progress towards goal: Met Goal #2: pt able to return to normal daily activities with less pain Goal to be met by: 05/20/18 Progress towards goal: Met Goal #3: BLE flexibility WFL's Goal to be met by: 05/20/18 Progress towards goal: Met Plan Dates of [facility] Goals: 05/20/18 Expiration date of current Insurance Approval:: 05/20/18 PLAN: Patient has completed order. Discharge to follow.
--- NOTE | 2018-05-14 10:06 | RS.OPPTDC ---
Date of Discharge: 05/08/18 Date of Evaluation: 04/08/18 Number of Visits: 12 Treatment Diagnosis: Back pain, Lumbar disc degeneration Current Level of Function: pt has improved with decreased antalgic gait pattern , oswestry score improved from 38 on eval to 11. pt has also been able to sleep better with less pain. pt also able to tolerate progressive ex's Current Complaints/Gains: pt reports she has seen an overall improvement with pain and flexibility. She is pleased with being able to walk much easier. Functional Outcome Measure Oswestry LBP: 11 - G Codes & Severity Modifier G Codes & Modifier: n/a Source of G Code score: n/a Observation - Observation Posture: Forward Head, Rounded Shoulders, Increased Thoracic Kyphosis Handedness: Right Gait - Gait Pattern Gait Comments: pt amb with slight antalgic gait pattern. Interventions - Exercise/Activities/Manual Therapy Exercises/Activities: n/a Manual Therapy: n/a HOME EXERCISE PROGRAM: pt given HEP including lying prone, standing lumbar ext, piriformis stretch, isometric hip add, resisted hip flex. - Charges Timed Code Treatment Minutes: n/a Total Treatment Time: n/a Procedures billed for this date of service:: n/a Assessment Assessment: pt has made significant progress with decreased pain, and improved oswestry score as well as improved strength. pt has met all goals Patient Education: Home Exercise Program, Education of Plan of Care Rehab Potential: Good Short Term Goals Goal #1: pt independent with initial HEP Goal to be met by: 04/29/18 Progress towards Goal:: Met Goal #2: Tenderness to palpation on L SI joint Goal to be met by: 04/29/18 Progress towards Goal:: Met Goal #3: pt report radicular pain no longer constant Goal to be met by: 04/29/18 Progress towards Goal:: Met Goal #4: pt rate pain < 8/10 Goal to be met by: 04/29/18 Progress towards Goal:: Met (03/13 avg) Longterm Goals Goal #1: Oswestry LBP score <30 Goal to be met by: 05/20/18 Progress towards goal: Met Goal #2: pt able to return to normal daily activities with less pain Goal to be met by: 05/20/18 Progress towards goal: Met Goal #3: BLE flexibility WFL's Goal to be met by: 05/20/18 Progress towards goal: Met Plan Reason for Discharge:: All Goals Met
== END 2018-06-01 23:59 ==
PROVIDERS: ATTEND Internal Medicine
DX: M54.42 Lumbago with sciatica, left side (principal); M54.41 Lumbago with sciatica, right side; R42 Dizziness and giddiness